=== PATIENT | male | born 1955 | race Caucasian/White ===

== ENCOUNTER → 2017-04-29 | Outpatient (CLI) | payer OTHER ==
[~2017-04-29] MED LIST: ADVAIR HFA 230M12 GM INH; ASPIRIN EC81 M1 PO; ATORVASTATIN CA40 MG PO; CARVEDILOL12.5 MG PO; CARVEDILOL6.25 MG PO; COZAAR 50 MG TA50 M2 PO; CYCLOBENZAPRINE PO; DICLOFENAC SODI75 MG; FLEXERIL; HYDROCODON-ACE1 EAC7 PO; IMDUR 30 MG TAB30 M1 PO; LIPITOR 20 MG T20 M1 PO; METFORMIN HCL500 MG PO; NORCO 5-325 TA1 EACH PO; PANTOPRAZOLE SO40 M1 PO; PERCOCET 10-321 EACH PO; PERCOCET PO; PLAVIX 75 MG TA75 M1 PO; RANEXA500 MG PO; TOPROL XL25 MG PO; TYLENOL325 MG PO; VOLTAREN75 MG PO; XANAX 0.5 MG0.5 MG PO; ZANAFLEX4 MG PO; ZANTAC PO; ZOLOFT; [UNRECOGNIZED DRUG - OTHER] PO
--- NOTE | ~2017-04-29 | 2DMMODE ---
[facility] [address] [place] [address] 2 D/M-MODE ECHOCARDIOGRAM Name: SAMEERA MILLER III Room #: REG [facility]#: [id number] Admission: 04/29/17 Attend Phys: Eidson Reardon MD Discharge: Date of : 55 Date of Service: 04/29/17 1607 Report #: [id number] THIS REPORT FOR: //name// APPROVED REPORT Study performed: 04/29/2017 14:48:39 EXAM: Comprehensive 2D, Doppler, and color-flow Echocardiogram Patient Location: Echo lab Status: routine BSA: 1.96 BP: 171/93 mmHg Other Information Study Quality: Good Indications Cardiomyopathy Echo Enhancing Agent Indication: Endocardial border delineation Agent(s) / Amount(s) Used: Optison 3 cc 2D Dimensions RVDd: 43.73 mm LVEF(%): 23.95 (>50%) IVSd: 13.07 (7-11mm) LVOT Diam: 21.64 (18-24mm) LVDd: 57.06 mm PWd: 11.92 (7-11mm) Ascending Ao: 34.97 (22-36mm) LVDs: 50.68 (25-40mm) Aortic Root: 26.99 mm IVC: 23.00 mm Moe's LVEF: 23.95 % Volumes Left Atrial Volume (Systole) Single Plane 4CH: 48.80 mL Single Plane 2CH: 76.25 mL LA ESV Index: 36.00 mL/m2 Aortic Valve AoV Peak Chris.: 1.35 m/s AO Peak Gr.: 7.28 mmHg LVOT Max P.74 mmHg LVOT Max V: 0.66 m/s THOMAS Vmax: 1.80 cm2 [facility] [place] [place] [address] 2 D/M-MODE ECHOCARDIOGRAM Name: SAMEERA MILLER III Room #: [facility]#: [id number] Admission: 04/29/17 Attend Phys: Edison Reardon MD Discharge: Date of : 55 Date of Service: 04/29/17 1607 Report #: [id number] Mitral Valve E/A Ratio: 1.9 MV Decel. Time: 138.51 ms MV E Max Chris.: 1.15 m/s MV A Chris.: 0.62 m/s MV PHT: 40.17 ms IVRT: 96.89 ms Pulmonary Valve PV Peak Chris.: 0.86 m/s PV Peak Gr.: 2.94 mmHg Pulmonary Vein P Vein S: 0.66 m/s P Vein A: 0.20 m/s P Vein D: 0.82 m/s P Vein A Dur.: 114.2 msec P Vein S/D Ratio: 0.80 Tricuspid Valve TR Peak Chris.: 3.78 m/s RAP Estimate: 15.00 mmHg TR Peak Gr.: 57.17 mmHg PA Pressure: 72.00 mmHg Left Ventricle Left ventricle is dilated. Hypokinesis of the inferior, distal anteroseptal and apical segments. Mild concentric left ventricular hypertrophy. Left ventricular ejection fraction is moderate to severely decreased. LVEF is 30-35%. Right Ventricle Right ventricle is dilated. Atria Left atrium is dilated. Right atrium is mildly dilated. Aortic Valve Aortic valve is calcified. No aortic regurgitation is present. There is no aortic valvular stenosis. Mitral Valve Mild mitral annular calcification. Mild mitral regurgitation. No evidence of mitral valve stenosis. Tricuspid Valve The tricuspid valve is normal in structure. Mild tricuspid regurgitation. PAP is estimated at 62 mmHg. Pulmonic Valve [address] [address] 2 D/M-MODE ECHOCARDIOGRAM Name: MILLERSAMEERA III Room #: REG [facility]#: [id number] Admission: 04/29/17 Attend Phys: Edison Reardon MD Discharge: Date of : 55 Date of Service: 04/29/17 1607 Report #: [id number] The pulmonary valve is normal in structure. Trace to mild pulmonic regurgitation. Great Vessels The aortic root is normal in size. IVC is normal in size and collapses >50% with inspiration. Pericardium Trace pericardial effusion. <Conclusion> Left ventricle is dilated. Mild concentric left ventricular hypertrophy. Left ventricular ejection fraction is moderate to severely decreased. LVEF is 30-35%. Right ventricle is dilated. Left atrium is dilated. There is no aortic valvular stenosis. Mild mitral regurgitation. Mild tricuspid regurgitation. PAP is estimated at 62 mmHg. <ELECTRONICALLY SIGNED> By: Edison Reardon MD 04/29/17 1607 1607 160 Edison Reardon MD /INF
== END ==
LOC: CV 07:32
DX: I08.3 Combined rheumatic disorders of mitral, aortic and tricuspid valves (principal); I25.5 Ischemic cardiomyopathy

== ENCOUNTER → 2018-12-25 | Outpatient (CLI) | payer OTHER ==
--- NOTE | 2018-12-25 15:35 | 2DMMODE ---
[facility] [address] [place] [address] 2 D/M-MODE ECHOCARDIOGRAM Name: MILLERSAMEERA III Room #: REG [facility]#: [id number] Admission: 12/25/18 Attend Phys: Edison Reardon MD Discharge: Date of : 55 Report #: [id number] THIS REPORT FOR: //name// APPROVED REPORT Study performed: 12/25/2018 14:26:20 EXAM: Comprehensive 2D, Doppler, and color-flow Echocardiogram Patient Location: Out-Patient Status: routine BSA: 2.12 HR: 78 bpm BP: 156/86 mmHg Rhythm: NSR Other Information Study Quality: Adequate Technically limited study due to obesity. Indications Ischemic cardiomyopathy. Hx: [place], stents, ICD, tobacco abuse, COPD, HTN, HLP 2D Dimensions RVDd: 36.69 mm IVSd: 13.00 (7-11mm) LVOT Diam: 21.25 (18-24mm) LVDd: 57.00 mm PWd: 11.00 (7-11mm) Ascending Ao: 35.43 (22-36mm) LVDs: 50.27 (25-40mm) Aortic Root: 31.44 mm Volumes Left Atrial Volume (Systole) Single Plane 4CH: 47.49 mL Single Plane 2CH: 62.03 mL LA ESV Index: 30.00 mL/m2 Aortic Valve AoV Peak Chris.: 1.36 m/s AO Peak Gr.: 7.42 mmHg LVOT Max P.75 mmHg LVOT Max V: 0.97 m/s THOMAS Vmax: 2.52 cm2 Mitral Valve E/A Ratio: 0.6 [facility] [address] [place] [address] 2 D/M-MODE ECHOCARDIOGRAM Name: SAMEERA MILLER III Room #: REG [facility]#: [id number] Admission: 12/25/18 Attend Phys: Edison Reardon MD Discharge: Date of : 55 Report #: [id number] MV Decel. Time: 181.12 ms MV E Max Chris.: 0.61 m/s MV A Chris.: 1.09 m/s MV PHT: 52.52 ms IVRT: 110.73 ms Pulmonary Valve PV Peak Chris.: 0.94 m/s PV Peak Gr.: 3.53 mmHg Pulmonary Vein P Vein S: 0.53 m/s P Vein A: 0.29 m/s P Vein D: 0.46 m/s P Vein A Dur.: 114.2 msec P Vein S/D Ratio: 1.15 Tricuspid Valve TR Peak Chris.: 2.35 m/s RAP Estimate: 5.00 mmHg TR Peak Gr.: 22.17 mmHg PA Pressure: 27.00 mmHg Left Ventricle Left ventricle is at the upper limits of normal. Mild concentric left ventricular hypertrophy. Left ventricular systolic function is moderate to severely decreased. LVEF is 30-35%. Mild diastolic dysfunction is present (impaired relaxation pattern). Right Ventricle The right ventricle is normal size. The right ventricular systolic function is normal. Device lead is present in the right ventricle. Atria The left atrium size is normal. The right atrium size is normal. Aortic Valve The aortic valve is normal in structure; mildly calcified. No aortic regurgitation is present. There is no aortic valvular stenosis. Mitral Valve The mitral valve is normal in structure. Trace mitral regurgitation. Tricuspid Valve The tricuspid valve is normal in structure. Trace tricuspid regurgitation. Estimated PAP is 25-30mmHg. [facility] [address] [place] [address] 2 D/M-MODE ECHOCARDIOGRAM Name: SAMEERA MILLERUR [facility] Room #: REG [facility]#: [id number] Admission: 12/25/18 Attend Phys: Edison Reardon MD Discharge: Date of : 55 Report #: [id number] Pulmonic Valve Pulmonic valve is not well visualized. Trace pulmonic regurgitation. Great Vessels The aortic root is normal in size. The ascending aorta is normal in size. IVC is normal in size and collapses >50% with inspiration. Pericardium There is no pericardial effusion. <Conclusion> Left ventricle is at the upper limits of normal. Mild concentric left ventricular hypertrophy. Left ventricular systolic function is moderate to severely decreased. LVEF is 30-35%. Mild diastolic dysfunction is present (impaired relaxation pattern). Device lead is present in the right ventricle. The left atrium size is normal. The aortic valve is normal in structure; mildly calcified. Trace mitral regurgitation. Trace tricuspid regurgitation. Estimated PAP is 25-30mmHg. <ELECTRONICALLY SIGNED> By: Edison Reardon MD 12/25/18 1534 1534 1534 Edison Reardon MD /INF
== END ==
LOC: CV 10:38
DX: I42.9 Cardiomyopathy, unspecified (principal); I25.2 Old myocardial infarction; J44.9 Chronic obstructive pulmonary disease, unspecified; E78.5 Hyperlipidemia, unspecified; Z95.5 Presence of coronary angioplasty implant and graft; I11.9 Hypertensive heart disease without heart failure

== ENCOUNTER 2019-12-30 20:18 | Inpatient (IN) | payer OTHER ==
[~2019-12-30] VITALS: Ht 167.6 cm; Wt 99.8 kg
[2019-12-30 22:24] VITALS: BP 140/71
[2019-12-30] MEDS ORDERED: CARVEDILOL12.5 MG PO ×2 (23:15)
[2019-12-30] MEDS ORDERED: NEURONTIN 400M400 M2 PO ×2 (23:22)
[2019-12-30] MEDS ORDERED: TRAMADOL 50 MG50 MG PO ×2 (23:24)
[2019-12-30] MEDS ORDERED: FLUOXETINE HCL40 MG PO ×2 (23:25)
[2019-12-30] MEDS ORDERED: FLEXERIL PO ×2 (23:27)
[2019-12-30] MEDS ORDERED: ENTRESTO 24 MG1 EACH PO ×4 (23:28→23:30)
[2019-12-30] MEDS ORDERED: NITROSTAT0.4 M1 SUBLING ×2 (23:32)
[2019-12-30] MEDS ORDERED: FLONASE 0.05%50 MCG NASAL ×2 (23:34)
[2019-12-30] MEDS ORDERED: TRELEGY ELLIPT1 EACH INH ×2 (23:37)
[2019-12-31 03:11] VITALS: BP 103/64
[2019-12-31 06:34] LABS: HEMATOCRIT 29.2 % (42.0-52.0); HEMOGLOBIN 9.5 gm/dL (14.0-18.0); MCH 27.5 pg (26.0-34.0); MCHC 32.6 g/dL (28.0-37.0); MCV 84.2 fL (80.0-100.0); RBC 3.47 mil/uL (4.50-6.00); RDW 16.8 % (10.5-14.5); WBC 10.3 thou/uL (4.0-11.0)
[2019-12-31 06:47] LABS: CALCIUM 9.5 mg/dL (8.5-10.1); CREATININE 1.3 mg/dL (0.7-1.3); POTASSIUM 4.2 mmol/L (3.5-5.1)
[2019-12-31 07:20] VITALS: BP 108/58
--- NOTE | 2019-12-31 08:53 | EKG ---
[facility] [place] [address] [address] [place] [address] ELECTROCARDIOGRAM REPORT Name: MAVERICK MILLERVANESSA DOMINGUEZ MUNIRA Room #: 200-I ADM IN M.R.#: [id number] Admission: 12/30/19 Attend Phys: Rekha Augustin MD Discharge: Date of : 55 Report #: [id number] THIS REPORT FOR: cc: FAM - Family physician unknown Edison Reardon MD, Craig H. MD [facility] ~ THIS REPORT FOR: //name// [facility] Test Date: 2019-12-31 Test Time: 07:53:24 Pat Name: SAMEERA MILLER Department: Room: 200 I Gender: M Staff Home Therapy Rn: Anh MCKENNA : 1955 Requested By: Ramakrishna Munoz Order Number: [id number] MD: Prince Rodriguez Measurements Intervals [place] Rate: 85 P: 52 SC: 156 QRS: -43 QRSD: 130 T: 107 QT: 403 QTc: 480 Interpretive Statements Sinus rhythm Nonspecific IVCD with LAD Inferior infarct, old Anterolateral infarct, age indeterminate Baseline wander in lead(s) V1,V2 Compared to ECG 05/17/2015 07:45:03 No significant change was found Electronically Signed On 12-31-2019 8:53:43 CDT by Prince Rodriguez [email or web address] <ELECTRONICALLY SIGNED> By: Prince Rodriguez MD, FACC 12/31/19 0853 075 Prince Rodriguez MD, FAC /EPI
--- NOTE | 2019-12-31 09:14 | 2DMMODE ---
[facility] [address] [place] [address] 2 D/M-MODE ECHOCARDIOGRAM Name: SAMEERA MILLER III Room #: 200-I ADM IN .R.#: [id number] Admission: 12/30/19 Attend Phys: Rekha Augustin MD Discharge: Date of : 55 Report #: [id number] THIS REPORT FOR: cc: FAM - Family physician unknown Edison Reardon MD, Jin S. MD ~ APPROVED REPORT Study performed: 12/31/2019 08:17:37 EXAM: Comprehensive 2D, Doppler, and color-flow Echocardiogram Patient Location: Bedside Room #: 200 Status: routine BSA: 2.10 HR: 75 bpm BP: 108/58 mmHg Rhythm: Regular w PVCs. Other Information Study Quality: Adequate Indications Elevated troponin. Hx: [place], ICD, Stents, ISCM, COPD, HTN. 2D Dimensions RVDd: 38.09 mm IVSd: 12.00 (7-11mm) LVOT Diam: 21.46 (18-24mm) LVDd: 59.48 mm PWd: 7.97 (7-11mm) Ascending Ao: 36.32 (22-36mm) LVDs: 51.69 (25-40mm) Aortic Root: 31.02 mm Volumes Left Atrial Volume (Systole) Single Plane 4CH: 47.01 mL Single Plane 2CH: 73.63 mL Aortic Valve AoV Peak Chris.: 1.50 m/s AO Peak Gr.: 9.06 mmHg LVOT Max P.61 mmHg LVOT Max V: 0.95 m/s THOMAS Vmax: 2.28 cm2 [facility] [address] [address] 2 D/M-MODE ECHOCARDIOGRAM Name: SAMEERA MILLER III Room #: 200-I [facility].#: [id number] Admission: 12/30/19 Attend Phys: Ahsan Matias Discharge: Date of : 55 Report #: [id number] Pulmonary Valve PV Peak Chris.: 0.89 m/s PV Peak Gr.: 3.15 mmHg Tricuspid Valve TR Peak Chris.: 2.72 m/s RAP Estimate: 5.00 mmHg TR Peak Gr.: 30.00 mmHg PA Pressure: 35.00 mmHg Left Ventricle Left ventricle is mildly dilated. There is normal left ventricular wall thickness. Left ventricular systolic function is moderate to severely decreased. LVEF is 30%. This study is not technically sufficient to allow evaluation of the LV diastolic function. Right Ventricle The right ventricle is normal size. The right ventricular systolic function is normal. Device lead is present in the right ventricle. Atria The left atrium size is normal. The right atrium size is normal. Aortic Valve The aortic valve is normal in structure; mildly calcified. No aortic regurgitation is present. There is no aortic valvular stenosis. Mitral Valve The mitral valve is normal in structure. Trace mitral regurgitation. No evidence of mitral valve stenosis. Tricuspid Valve The tricuspid valve is normal in structure. Mild tricuspid regurgitation. Estimated PAP is 35mmHg. Pulmonic Valve The pulmonary valve is normal in structure. Trace pulmonic regurgitation. Great Vessels The aortic root is normal in size. The ascending aorta is normal in size. IVC is normal in size and collapses >50% with inspiration. Pericardium There is no pericardial effusion. [facility] [address] [place] [address] 2 D/M-MODE ECHOCARDIOGRAM Name: SAMEERA MILLER [facility] Room #: 200-I [facility] IN .R.#: [id number] Admission: 12/30/19 Attend Phys: Ahsan Matias Discharge: Date of : 55 Report #: [id number] <Conclusion> Left ventricle is mildly dilated. There is normal left ventricular wall thickness. Left ventricular systolic function is moderate to severely decreased. The right ventricle is normal size. Device lead is present in the right ventricle. The aortic valve is normal in structure; mildly calcified. Trace mitral regurgitation. Mild tricuspid regurgitation. Estimated PAP is 35mmHg. <ELECTRONICALLY SIGNED> By: Edison Reardon MD 12/31/1914 0914 Edison Reardon MD /INF
[2019-12-31 11:49] VITALS: BP 129/64
--- NOTE | 2019-12-31 15:13 | NUR ---
Met with patient who reports he lives with in [facility]. 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 He reports has inhalers at home. Cont to drive. Supportive family. PCP Dr Neville. Patient resides with in independent home. he cont to drive and reports supportive family in area.
[2019-12-31 15:16] LABS: HEMATOCRIT 32.5 % (42.0-52.0); HEMOGLOBIN 10.3 gm/dL (14.0-18.0); MCH 26.7 pg (26.0-34.0); MCHC 31.7 g/dL (28.0-37.0); MCV 84.1 fL (80.0-100.0); RBC 3.86 mil/uL (4.50-6.00); RDW 17.1 % (10.5-14.5); WBC 13.9 thou/uL (4.0-11.0)
[2019-12-31 15:47] LABS: CREATININE 1.5 mg/dL (0.7-1.3); POTASSIUM 4.4 mmol/L (3.5-5.1); TROPONIN-I 0.22 ng/mL (<0.06)
[2019-12-31 16:39] VITALS: BP 114/57
--- NOTE | 2019-12-31 17:55 | NUR ---
ASSUMED CARE PT SHIFT CHANGE. ASSESSMENTS CHARTED.MEDS GIVEN PER MAY. PT ALERT AND ORIENTED.VSS. C/O BACK PAIN MANAGED WITH PO PAINMEDS. O2 SATS WNL ON ROOM AIR DENIES SOB. CXR THIS SHIFT REFER TO RESULTS. PT SEEN BY PULM REFER TO PHYSICIAN NOTE. PT CURRENTLY UP IN BED EATING DINNER DENIES NEEDS/CONCERNS. PT UP INDEPENDENTLY. CONT TO MONITOR PT AND FOLLOW POC.
[2019-12-31 19:41] VITALS: BP 111/54
--- NOTE | 2020-01-01 02:52 | NUR ---
ASSUMED CARE OF PATIENT AT 1900. AT INITIAL ASSESSMENT PATIENT COMPLAINED OF NECK PAIN/DISCOMFORT. ADMINISTERED PRN TIZANIDINE ORDERED. NO HEMOPTYSIS OBSERVED OR REPORTED BY PATIENT. PATIENT RESTED WELL THROUGH NOC AND APPEARS TO BE PROGRESSING TOWARDS CARE PLAN GOALS.
[2020-01-01 04:44] VITALS: BP 150/64
[2020-01-01 05:29] LABS: HEMATOCRIT 31.6 % (42.0-52.0); HEMOGLOBIN 9.8 gm/dL (14.0-18.0); MCH 26.6 pg (26.0-34.0); MCV 85.8 fL (80.0-100.0); RBC 3.69 mil/uL (4.50-6.00); RDW 17.2 % (10.5-14.5)
[2020-01-01 05:41] LABS: CALCIUM 9.9 mg/dL (8.5-10.1); CREATININE 1.5 mg/dL (0.7-1.3); POTASSIUM 3.6 mmol/L (3.5-5.1)
[2020-01-01 09:25] VITALS: BP 133/74
[2020-01-01 11:27] VITALS: BP 111/52
[2020-01-01] MEDS ORDERED: CODEINE SULFATE30 MG PO ×2 (12:48)
[2020-01-01] MEDS ORDERED: CEFUROXIME500 MG PO ×2 (12:49)
[2020-01-01] MEDS ORDERED: PREDNISONE 20 M20 M1 PO ×2 (12:50)
[2020-01-01 13:19] VITALS: BP 111/52
--- NOTE | 2020-01-01 13:45 | NUR ---
DISCHARGE EXPECTED. CARDIAC AND PULMONARY HAVE SIGNED OFF. HERE TO TRANSPORT.
[2020-01-04] MEDS ORDERED: COREG6.25 MG PO (10:18)
[2020-01-04] MEDS ORDERED: PLAVIX 75 MG TA75 MG PO (10:25)
[2020-01-04] MEDS ORDERED: ADULT ASPIRIN R81 MG PO (10:26)
[2020-01-04] MEDS ORDERED: PROTONIX40 M2 PO (10:27)
[2020-01-04] MEDS ORDERED: METFORMIN HCL500 M3 PO (10:53)
[2020-01-04] MEDS ORDERED: CEFUROXIME500 MG PO (10:54)
[2020-01-04] MEDS ORDERED: CYCLOBENZAPRINE5 MG PO (10:59)
[2020-01-04] MEDS ORDERED: PREDNISONE 20 M20 MG PO (11:13)
[2020-01-05] MEDS ORDERED: ACETAMINOPHEN-1 EACH PO (11:07)
== END 2020-01-01 14:52 | disposition home or self-care (01) | DRG 871 ==
LOC: 2N 20:18
PROVIDERS: Hospitalist; Internal Medicine Cardiovascular Disease; Nurse Practitioner Family; ADMIT Hospitalist; ATTEND Hospitalist
DX: A41.9 Sepsis, unspecified organism (principal); I21.4 Non-ST elevation (NSTEMI) myocardial infarction; J18.9 Pneumonia, unspecified organism; N39.0 Urinary tract infection, site not specified; I50.22 Chronic systolic (congestive) heart failure; R91.8 Other nonspecific abnormal finding of lung field; I25.5 Ischemic cardiomyopathy; G89.29 Other chronic pain; I08.1 Rheumatic disorders of both mitral and tricuspid valves; F32.9 Major depressive disorder, single episode, unspecified; E11.40 Type 2 diabetes mellitus with diabetic neuropathy, unspecified; F41.9 Anxiety disorder, unspecified; I11.0 Hypertensive heart disease with heart failure; J44.9 Chronic obstructive pulmonary disease, unspecified; E78.00 Pure hypercholesterolemia, unspecified; K21.9 Gastro-esophageal reflux disease without esophagitis; M54.9 Dorsalgia, unspecified; R59.0 Localized enlarged lymph nodes; F17.210 Nicotine dependence, cigarettes, uncomplicated; I25.10 Atherosclerotic heart disease of native coronary artery without angina pectoris; I25.2 Old myocardial infarction; Z95.5 Presence of coronary angioplasty implant and graft; Z79.01 Long term (current) use of anticoagulants; Z79.899 Other long term (current) drug therapy; Z79.82 Long term (current) use of aspirin
CPT/HCPCS: 10081

== ENCOUNTER → 2020-01-04 | Outpatient (CLI) | payer OTHER ==
[~2020-01-04] MED LIST changes: +ACETAMINOPHEN-1 EACH PO; +ADULT ASPIRIN R81 MG PO; +CEFUROXIME500 MG PO; +CODEINE SULFATE30 MG PO; +COREG6.25 MG PO; +CYCLOBENZAPRINE5 MG PO; +ENTRESTO 24 MG1 EACH PO; +FLEXERIL PO; +FLONASE 0.05%50 MCG NASAL; +FLUOXETINE HCL40 MG PO; +METFORMIN HCL500 M3 PO; +NEURONTIN 400M400 M2 PO; +NITROSTAT0.4 M1 SUBLING; +PLAVIX 75 MG TA75 MG PO; +PREDNISONE 20 M20 M1 PO; +PREDNISONE 20 M20 MG PO; +PROTONIX40 M2 PO; +TRAMADOL 50 MG50 MG PO; +TRELEGY ELLIPT1 EACH INH
== END ==
LOC: LAB 09:18
PROVIDERS: ATTEND Pediatrics
DX: Z01.812 Encounter for preprocedural laboratory examination (principal); Z20.828 Contact with and (suspected) exposure to other viral communicable diseases

== ENCOUNTER 2020-01-06 06:11 | Day surgery (SDC) | payer OTHER ==
[~2020-01-06] VITALS: Ht 167.6 cm; Wt 99.8 kg
[2020-01-06 07:39] VITALS: BP 103/70
--- NOTE | 2020-01-07 16:06 | PATH ---
[facility] [address] [place] [address] PATHOLOGY RPT PROCEDURE Name: SAMEERA MILLER III Room #: DEP [facility] M..#: [id number] Admission: 01/06/20 Date of : 55 Discharge: 01/06/20 Report #: [id number] Path Case #: [id number] Note [facility] Accession Number: [id number] TESTS RESULT FLAG UNITS REF RANGE LAB Clinician Provided Cytology Information No. of containers..01 Other (Miscellaneous) Source: SUBCARINAL FNA DIAGNOSIS: 02 SUBCARINAL FNA INCONCLUSIVE. NORMAL BRONCHIAL CELLS ARE PRESENT. SCANT CELLULARITY. COMMENT, FEW ATYPICAL SQUAMOUS CELLS SEEN NOT DIAGNOSTIC OF MALIGNANCY. SUGGEST CLINICAL CORRELATION Signed out by: 02 Aubrey Rushing MD, Pathologist NPI- [id number] Performed by: Yaa High, Hospital Corpsman ([facility]) Gross description: 01 X, X, X /LCS 01/06/2020 1850 Local FLAG LEGEND: L-Low Normal,H-High Normal,LL-Alert Low,HH-Alert High <-Panic Low,>-Panic High,A-Abnormal,AA-Critical Abnormal Performed at: [address] [address] Ronald Johnson MD, [address] [address] Kg Contreras MD, Performed at: [address] [id number] MD Ronald Johnson MD Phone: [phone]
--- NOTE | 2020-01-08 13:08 | PATH ---
[facility] [address] [place] [address] PATHOLOGY RPT PROCEDURE Name: SAMEERA MILLER III Room #: DEP [facility] M..#: [id number] Admission: 01/06/20 Date of : 55 Discharge: 01/06/20 Report #: [id number] Path Case #: [id number] Note [facility] Accession Number: [id number] TESTS RESULT FLAG UNITS REF RANGE LAB Clinician Provided Cytology Information No. of containers..01 Other (Miscellaneous) Source: [A] 01 RIGHT BAL DIAGNOSIS: [A] 02 RIGHT BAL SUSPICIOUS FOR MALIGNANCY. THIS INTERPRETATION INCLUDES EVALUATION OF A CELL BLOCK. COMMENT, FEW HIGHLY ATYPICAL KERATINIZED CELLS SEEN SUSPICIOUS NON SMALL CELL CARCINOMA FAVOR FOR SQUAMOUS CELL CARCINOMA. SUGGEST CLINICAL AND RADIOLOGICAL CORRELATION. Signed out by: 02 Aubrey Rushing MD, Pathologist NPI- [id number] Performed by: 01 Yaa High, Glass Ribbon Machine Operator ([facility]) Gross description: 01 35ML, RED, 1TP, 1CB /LCS 01/06/2020 1900 Local FLAG LEGEND: L-Low Normal,H-High Normal,LL-Alert Low,HH-Alert High <-Panic Low,>-Panic High,A-Abnormal,AA-Critical Abnormal Performed at: [address] [address] Ronald Johnson MD, PATRICE[address] [address] Kg Contreras MD, Performed at: [address] [id number] MD Ronald Johnson MD Phone: [phone]
--- NOTE | 2020-01-11 13:07 | PATH ---
[facility] [address] [address] PATHOLOGY RPT PROCEDURE Name: SAMEERA CABRAL III Room #: DEP [facility].#: [id number] Admission: 01/06/20 Date of : 55 Discharge: 01/06/20 Report #: [id number] Path Case #: [id number] L[facility] Accession Number: [id number] . 01 Material submitted: . PART A: head - SUBCARINAL NEDDLE ASPIRATE PART B: bronchus - TESSA TBNA. Modifiers: left, upper lobe PART C: bronchus - RUL TBNA. Modifiers: right, upper lobe . 01 Clinical history: . LUNG MASS . 02 Diagnosis: A. Lung "subcarinal tissue, needle aspirate: - Fragments of upper respiratory tract type epithelium and squamous metaplastic epithelium, admixed with acute and chronic inflammation, pigment-laden macrophages, mucous, blood and fibrin. - Negative for malignancy. . B. Lung "left upper lobe", TBNA: - Bronchial mucosa with focal squamous metaplasia with reactive changes and acute and chronic inflammation. - Alveolar lung tissue without significant pathologic alteration. . C. Lung "right upper lobe", TBNA: - INVASIVE SQUAMOUS CELL CARCINOMA, KERATINIZING TYPE, MODERATE TO POORLY DIFFERENTIATED, WITH FOCAL NECROSIS. . (AMAIRANIK:choco; 01/08/2020) . Dr. Darron Hernandez is given the results on 01/08/2020. MBR 01/11/2020 1234 Local . 02 Comment: These findings correlate with the findings of cytology specimen from the BAL of the right lung,([id number]), obtained during the same procedure. . . . . . . . . . . [address] [address] PATHOLOGY RPT PROCEDURE Name: SAMEERA CABRAL III Room #: DEP [facility].#: [id number] Admission: 01/06/20 Date of : 55 Discharge: 01/06/20 Report #: [id number] Path Case #: [id number] . 02 Electronically signed: . Jenelle Blanc MD, Pathologist NPI- [id number] . 01 Gross description: . A. The specimen is received in formalin, labeled "Sameera Cabral III, subcarinal tissue needle aspirate" and consists of multiple minute fragments of ferrari-brown tissue measuring 1.8 x 0.9 x 0.1 cm which are entirely submitted in A1. . B. The specimen is received in formalin, labeled "Misha, Duard III, TESSA TBNA" and consists of 2 fragments of ferrari tissue measuring 0.2 x 0.2 cm and 0.3 x 0.2 cm which are entirely submitted in B1. . C. The specimen is received in formalin, labeled "Cabral, Duard III, RUL TBNA" and consists of multiple fragments of ferrari tissue measuring 1.2 x 0.8 x 0.3 cm in aggregate which are entirely submitted in C1. (SDY; 01/07/2020) SYU/SYU 01/07/2020 1310 Local . 02 Pathologist provided ICD-10: J18.9, J98.4, C34.11 . 02 CPT . 550914, 054547, 802864 Specimen Comment: A courtesy copy of this report has been sent to [phone] Specimen Comment: [phone], Specimen Comment: Report sent to ,DR RICHARDSON / DR ZAMORA Performed at: 01 [facility] [address] [id number] MD Ronald Johnson MD Phone: [phone] Performed at: 02 [facility] [address] [id number] MD Kg Contreras MD Phone: [phone]
== END 2020-01-06 10:45 | disposition home or self-care (01) ==
LOC: PUL 06:11 → TBA 06:11 → EDSTATUS 06:16 → TBA 06:17 → PUL 08:00
PROVIDERS: ATTEND Pediatrics
DX: C34.11 Malignant neoplasm of upper lobe, right bronchus or lung (principal); J18.9 Pneumonia, unspecified organism; J98.4 Other disorders of lung; R91.8 Other nonspecific abnormal finding of lung field; R04.2 Hemoptysis; A15.0 Tuberculosis of lung; I10 Essential (primary) hypertension; I25.10 Atherosclerotic heart disease of native coronary artery without angina pectoris; I25.2 Old myocardial infarction; I42.9 Cardiomyopathy, unspecified; E11.9 Type 2 diabetes mellitus without complications; J43.9 Emphysema, unspecified; E78.00 Pure hypercholesterolemia, unspecified; F32.9 Major depressive disorder, single episode, unspecified; F41.9 Anxiety disorder, unspecified; K21.9 Gastro-esophageal reflux disease without esophagitis; Z98.890 Other specified postprocedural states; Z79.899 Other long term (current) drug therapy; Z87.891 Personal history of nicotine dependence; Z95.0 Presence of cardiac pacemaker
CPT/HCPCS: 50010; 62110; 62900; 70005

== ENCOUNTER 2020-01-10 23:21 | Emergency (ER) | payer OTHER ==
[~2020-01-10] VITALS: Ht 177.8 cm; Wt 93.0 kg
[2020-01-10 23:36] VITALS: BP 108/67
[2020-01-11 00:17] LABS: ABSOLUTE NEUTROPHILS 13.6 thou/uL (1.4-8.2); BASOPHILS 0.4 % (0.0-2.0); EOSINOPHILS 1.7 % (0.0-3.0); HEMATOCRIT 26.4 % (42.0-52.0); HEMOGLOBIN 8.2 gm/dL (14.0-18.0); LYMPHOCYTES 3.9 % (24.0-44.0); MCH 26.3 pg (26.0-34.0); MONOCYTES 5.6 % (1.0-8.0); PLATELET COUNT 404 thou/uL (150-400); POLYS 88.4 % (36.0-66.0); RBC 3.11 mil/uL (4.50-6.00); RDW 17.2 % (10.5-14.5); WBC 15.4 thou/uL (4.0-11.0)
[2020-01-11 00:20] LABS: CALCIUM 8.9 mg/dL (8.5-10.1); CREATININE 1.3 mg/dL (0.7-1.3); POTASSIUM 4.2 mmol/L (3.5-5.1)
[2020-01-11 00:26] LABS: ALBUMIN 2.6 g/dL (3.4-5.0); TOTAL BILIRUBIN 0.4 mg/dL (0.2-1.0); TOTAL PROTEIN 6.9 g/dL (6.4-8.2)
[2020-01-11 00:54] LABS: INR 1.1; PROTIME 10.7 Seconds (9.3-11.4)
[2020-01-11 01:00] VITALS: BP 129/66
--- NOTE | 2020-01-11 02:18 | NUR ---
DR CORREA TALKING WITH , GLORY REGARDING PT
--- NOTE | 2020-01-11 02:26 | NUR ---
INFORMATION RELAYED TO , GLORY BY DR CORREA, I TALKED WITH MRS PAUL, HAS OUR NUMBER, GIVEN HOME NUMBER
--- NOTE | 2020-01-11 02:49 | NUR ---
BELONGINGS GIVEN TO SECURITY
--- NOTE | 2020-01-11 07:44 | NUR ---
Spoke with [facility] Radha sneed and she released patient to have certificate signed by Dr. Augustin.
--- NOTE | 2020-01-11 11:53 | EKG ---
[facility] [place] [address] ELECTROCARDIOGRAM REPORT Name: [facility]A [facility] Room #: 170- ADM IN M.R.#: [id number] Admission: 01/11/20 Attend Phys: Rekha Augustin MD Discharge: Date of : 55 Report #: [id number] THIS REPORT FOR: cc: Jamal Neville,Jamal Wright,Pirnce Poon MD [facility] THIS REPORT FOR: //name// [facility] ED Test Date: 2020-01-11 Test Time: 00:11:41 Pat Name: SAMEERA MILLER Department: Room: 170 1 Gender: M Improvement Coordinator: TINA : 1955 Requested By: Rekha Augustin Order Number: [id number] MD: Prince Rodriguez Measurements Intervals [place] Rate: 92 P: 58 IN: 143 QRS: -40 QRSD: 121 T: 114 QT: 357 QTc: 442 Interpretive Statements Sinus rhythm Nonspecific IVCD with LAD Inferior infarct, old Anterolateral infarct, age indeterminate Compared to ECG 12/31/2019 07:53:24 No significant changes Electronically Signed On 01-11-2020 11:53:11 CDT by Prince Rodriguez [email or web address] <ELECTRONICALLY SIGNED> By: Prince Rodriguez MD, FACC 01/11/20 1153 001 Prince Rodriguez MD, FACC /EPI
== END 2020-01-11 02:05 ==
LOC: ER 23:21 → EROBS 01-11 01:16
PROVIDERS: Emergency Medicine
DX: I46.9 Cardiac arrest, cause unspecified (principal); D62 Acute posthemorrhagic anemia; R04.2 Hemoptysis; I11.0 Hypertensive heart disease with heart failure; I50.20 Unspecified systolic (congestive) heart failure; F32.9 Major depressive disorder, single episode, unspecified; F41.9 Anxiety disorder, unspecified; I25.10 Atherosclerotic heart disease of native coronary artery without angina pectoris; I25.2 Old myocardial infarction; E11.9 Type 2 diabetes mellitus without complications; K21.9 Gastro-esophageal reflux disease without esophagitis; J44.9 Chronic obstructive pulmonary disease, unspecified; F17.210 Nicotine dependence, cigarettes, uncomplicated; Z20.828 Contact with and (suspected) exposure to other viral communicable diseases; Z95.0 Presence of cardiac pacemaker; Z79.899 Other long term (current) drug therapy; Z79.82 Long term (current) use of aspirin; Z98.890 Other specified postprocedural states